=== PATIENT | female | born 1940 | race Caucasian/White ===

== ENCOUNTER → 2017-05-04 | Outpatient (CLI) | payer MEDICARE, BC ==
[~2017-05-04] MED LIST: AMLO5TAB PO; ASPIRIN 325MG325 MG PO; ATENOLOL50 M1 PO; ATENOLOL50 MG PO; CIPRO 500MG TA500 MG PO; COUMADIN 2.5MG2.5 MG PO; FAMOTIDINE 20MG20 MG PO; FLAGYL500 MG PO; HYDROCHLOROTHIA25 M1 PO; LEVOTHYROXINE0.1 M1 PO; LEVOTHYROXINE0.1 MG PO; LISINOPRIL40 MG PO; SERTRALINE 50MG50 MG PO; WARFARIN SOD5 MG PO; ZOFRAN ODT8 MG PO
--- NOTE | 2017-05-04 15:12 | RADIOLOGY REPORT PS360 ---
CARDIOLITE SPECT MYOCARDIAL PERFUSION SCAN, REST AND STRESS: EXERCISE STRESS [facility] REVIEW QGS EF AND WALL MOTION EVALUATION: QPS - PERFUSION EVALUATION HISTORY: chest pain DOSE: 10.27 mCi technetium 99m mibi intravenously at rest followed by 31.2 mCi technetium 99m mibi following the intravenous ministration of 0.4 mg of Lexiscan. Resting blood pressure is 165/85. Stress blood pressure 196/96. FINDINGS: Ejection fraction is calculated to be 72%. Stress images reveal mild degree of reversible ischemia in the anterior wall with normal images during rest. Gated images calculated ejection fraction is 72% with normal wall motion IMPRESSION: Mild degree of anterior wall reversible ischemia. Clinical correlation is advised. Normal ejection fraction normal wall motion
--- NOTE | 2017-05-04 15:12 | RADIOLOGY REPORT PS360 ---
CARDIOLITE SPECT MYOCARDIAL PERFUSION SCAN, REST AND STRESS: EXERCISE STRESS [facility] REVIEW QGS EF AND WALL MOTION EVALUATION: QPS - PERFUSION EVALUATION HISTORY: chest pain DOSE: 10.27 mCi technetium 99m mibi intravenously at rest followed by 31.2 mCi technetium 99m mibi following the intravenous ministration of 0.4 mg of Lexiscan. Resting blood pressure is 165/85. Stress blood pressure 196/96. FINDINGS: Ejection fraction is calculated to be 72%. Stress images reveal mild degree of reversible ischemia in the anterior wall with normal images during rest. Gated images calculated ejection fraction is 72% with normal wall motion IMPRESSION: Mild degree of anterior wall reversible ischemia. Clinical correlation is advised. Normal ejection fraction normal wall motion
--- NOTE | 2017-05-04 19:34 | RADIOLOGY REPORT PS360 ---
PROCEDURE: 2-D M-mode and color Doppler study INDICATIONS FOR THE TEST: Chest pain X COPD Heart Murmur Tobacco Smoking Palpitations Fatigue Syncope Edema HypertensionXDiabetes Mellitus Rheumatic Fever SOB BREWER Obesity HyperlipidemiaX Family History HD Additional History PATIENT INFORMATION HEIGHT: 63 WEIGHT:173 GENDER: Female B/P:165/85 2-D/M-MODE INTERPRETATION: 2-D MEASUREMENTS OBSERVED VALUES IN CMS Right Ventricular Dimension (RVDd) 1.8 Interventricular Septum (Thickness)(IVsd) 1.1 Left Ventricular Internal Dimensions(LVIDd) 5.0 Left Ventricular Posterior Wall (Thickness)(LVPWd) .8 Aortic Root 3.4 Aortic Cusp Separation 1.7 Left Atrial Dimensions (LAD) 3.7 2D 1. Left atrium is mildly enlarged, left ventricle is normal size, there is mild concentric left ventricular hypertrophy, visually estimated ejection fraction 55% with no obvious regional wall motion abnormality. 2. The right atrium and right ventricle are mildly enlarged with normal contractility. 3. The aortic valve is thickened and calcified leaflet continue to display mobility. 4. The mitral and tricuspid valve leaflets are minimally thickened. 5. The pulmonic valve is poorly visualized. 6. No significant pericardial effusion noted. DOPPLER INTERROGATION: Doppler interrogation of the aortic, mitral and tricuspid valvular presence of mild mitral and tricuspid regurgitation, tricuspid and jet velocity is insufficient for calculation of the right ventricular systolic pressure, grade 1 diastolic dysfunction seen with tissue Doppler evidence of raised left atrial pressure. CONCLUSION: 1. Mildly enlarged left atrium, normal left ventricular size, mild concentric left ventricular hypertrophy, visually estimated ejection fraction 55% with no obvious regional wall motion abnormality, grade 1 diastolic dysfunction seen with tissue Doppler evidence of raised left atrial pressure. 2. Mild mitral and tricuspid regurgitation. 3. No significant pericardial effusion noted.
== END ==
LOC: RAD 07:30
DX: I20.8 Other forms of angina pectoris (principal); I10 Essential (primary) hypertension; I48.0 Paroxysmal atrial fibrillation
CPT/HCPCS: A9502; J2785

== ENCOUNTER 2017-05-10 06:51 | Day surgery (SDC) | payer MEDICARE, BC ==
[2017-05-10 08:05] LABS: BUN 19 mg/dL (7-18)
[2017-05-10 08:08] LABS: GFR (ESTIMATED) 70 ML/MIN (59-)
[2017-05-10 08:09] LABS: HEMOGLOBIN 13.3 g/dL (12.2-16.2); LYMPH # 2.8 K/mm3 (0.7-4.5); LYMPH % 35.9 % (10-50.0)
--- NOTE | 2017-05-10 10:48 | RADIOLOGY REPORT PS360 ---
CARDIAC CATHETERIZATION DATE OF CATHETERIZATION:05/10/2017 9:54 AM PROCEDURES: 1. Left heart catheterization 2. Left ventriculogram 3. Selective coronary angiogram 4. Drug-eluting stent deployment to the proximal LAD 5. Drug-eluting stent deployment to the proximal and distal dominant right coronary artery INDICATION FOR TEST: 1. Coronary artery disease 2. Class III angina pectoris 3. Abnormal Myoview with anterior ischemia Informed consent was obtained prior to the procedure. COMPLICATIONS: None ESTIMATED BLOOD LOSS: Less than 10 ml. TECHNIQUE: One percent lidocaine used to anesthetize the right anterior aspect of the wrist. The right radial artery was accessed via the Seldinger technique. A 6 [place] sheath was placed in the right radial artery. 2.5 mg of verapamil, 800 mcg of nitroglycerin and 5000 U Heparin were given through the arterial sheath. A trap catheter was used to perform left heart catheterization left ventriculogram and selective coronary angiogram. At the end of the procedure an additional 3000 units of heparin was administered intravenously giving an ACT greater than 400. An [employer] left guide catheter was used intubate the left main artery and a BMW wire was placed distally. A 2.75 x 22 mm resolute Tony stent was deployed at 20 yosi reducing the stenosis to 20%. A 3 mm x 8 mm noncompliant balloon was placed in the proximal segment and deployed at 20 yosi post dilating reducing the stenosis to 0%. Excellent angiographic results were obtained with KAELA-3 flow down the vessel before and after the procedure. Because of the tandem severe stenoses in the right coronary artery the same guide catheter was used intubate the right coronary artery and the BMW wire was placed distally. A 3 mm x 15 mm resolute [place] stent was deployed at 20 yosi in the proximal segment reducing the 50-60% stenosis to 0% while a 2.75 x 15 mm resolute Tony stent was placed distally reducing the 70-80% stenosis to 0%. Excellent angiographic results were obtained with KAELA-3 flow being down the vessel before and after the procedure. At the end of the procedure the sheath was removed good hemostasis was achieved using TR banding patient was transferred to the postop holding area in stable condition. Brilinta 180 mg was given orally at the end of the procedure. ANGIOGRAPHIC RESULTS: 1. The left main artery normal 2. The left anterior descending artery has a proximal concentric 70% stenosis with remaining vessel having mild luminal irregularities 3. The ramus intermedius has ostial 30% and proximal 20% stenoses 4. The circumflex artery is nondominant yet still a large vessel and has proximal 30% stenoses and 20% stenoses in the first and second obtuse marginal artery 5. The right coronary artery is a dominant vessel and has proximal 30% with an additional 50-60% stenosis proximally and a 70-80% distal concentric stenosis. The posterior descending artery has mid vessel 40% stenoses 6. The WEST ventriculogram reveals normal 65% 7. The left ventricular end-diastolic pressure 20 mmHg IMPRESSION: 1. Severe 2 vessel coronary artery disease as described above 2. Successful stenting of the proximal LAD severe disease reduced to 0% with 1 drug-eluting stent 3. Successful stenting of the proximal and distal dominant right coronary artery severe disease reduced to 0% with 2 drug-eluting stents 4. Normal ejection fraction 5. Mildly elevated LVEDP PLAN: 1. Brilinta and aspirin 2. LDL less than 55 3. Avoidance of tobacco products 4. Cardiac rehabilitation 5. Risk factor modification 6. Control of hypertension 7. Patient might benefit from low dose diuretics in order to decrease LVEDP
[2017-05-10 15:04] VITALS: BP 146/71
== END 2017-05-10 15:09 | disposition home or self-care (01) ==
LOC: CATHLAB 06:51
PROVIDERS: Internal Medicine
PROC: 027135Z Dilation of Coronary Artery, Two Arteries with Two Drug-eluting Intraluminal Devices, Percutaneous Approach (ICD-10-PCS; 2017-05-10)
PROC: B2111ZZ Fluoroscopy of Multiple Coronary Arteries using Low Osmolar Contrast (ICD-10-PCS; 2017-05-10)
PROC: B2151ZZ Fluoroscopy of Left Heart using Low Osmolar Contrast (ICD-10-PCS; 2017-05-10)
PROC: 4A023N7 Measurement of Cardiac Sampling and Pressure, Left Heart, Percutaneous Approach (ICD-10-PCS; principal; 2017-05-10 08:30)
DX: I25.119 Atherosclerotic heart disease of native coronary artery with unspecified angina pectoris (principal); R94.39 Abnormal result of other cardiovascular function study; Z72.0 Tobacco use; R07.9 Chest pain, unspecified; I10 Essential (primary) hypertension; R06.09 Other forms of dyspnea; I48.0 Paroxysmal atrial fibrillation; Z79.01 Long term (current) use of anticoagulants
CPT/HCPCS: C1725; C1769; C1876; J1644; Q9967